=== PATIENT | female | born 1975 | race Caucasian/White ===

== ENCOUNTER 2025-01-07 08:25 | Day surgery (SDC) | payer OTHER ==
[2025-01-07 09:00] VITALS: RESP 16; TEMP 98
[2025-01-07] MEDS: ALPRAZolam 0.25 MG TAB PO STA (09:10)
[2025-01-07 10:19] VITALS: BP 94/61; PULSE 65
--- NOTE | 2025-01-07 12:46 | US ---
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 Carr PROCEDURE: Informed consent was obtained. The risks and benefits of the procedure were discussed with the patien t. The site was marked. Timeout procedure was performed Ultrasound imaging demonstrates mildly solid nodule right thyroid lobe The patient was prepped, draped in the usual sterile fashion, and locally anesthetized with 1% lidoca ine. Five fine needle aspiration were then performed with a 25 gauge needle. Samples were sent to [facility] pathology department for further analysis. Patient tolerated the procedure without incident and wa s sent home in stable condition. IMPRESSION: Successful ultrasound guided fine needle aspiration [facility] Rosalva Salazar, , 01/07/2025 12:43 PM
== END 2025-01-07 10:15 | disposition home or self-care (01) ==
LOC: RADPROMAIN 08:25
PROVIDERS: ATTEND Family Medicine
DX: E04.1 Nontoxic single thyroid nodule (principal); E06.3 Autoimmune thyroiditis
CPT/HCPCS: 10005; 88173; 88305